=== PATIENT | female | born 1935 | race Caucasian/White ===

== ENCOUNTER 2017-06-27 13:30 | Inpatient (IN) | payer MEDICARE ==
[~2017-06-27] VITALS: Ht 162.6 cm; Wt 71.5 kg
[2017-06-27 11:34] LABS: BASOPHILS % (AUTO) 0.5 % (0-1); CLARITY,URINE SLIGHTLY CLOUDY (Clear); COLOR,URINE YELLOW (Yellow); EOSINOPHILS # (AUTO) 0.2 X10'3 (0-0.9); EOSINOPHILS % (AUTO) 3.5 % (0-6); GLUCOSE, URINE NEGATIVE (Neg); KETONES,URINE NEGATIVE (Neg); LEUKOCYTE ESTERASE ,URINE NEGATIVE (Neg); LYMPHOCYTES # (AUTO) 1.5 X10'3 (1.1-4.8); LYMPHOCYTES % (AUTO) 29.3 % (21-51); MEAN CORPUSCULAR HEMOGLOBIN 32.1 PG (27.0-31.0); MEAN CORPUSCULAR HGB CONC 35.1 % (33.0-36.5); MEAN CORPUSCULAR VOLUME 91.5 FL (78-98); MEAN PLATELET VOLUME 8.2 FL (7.4-10.4); MONOCYTES # (AUTO) 0.3 X10'3 (0-0.9); MONOCYTES % (AUTO) 6.3 % (2-12); NEUTROPHILS # (AUTO) 3.1 X10'3 (1.8-7.7); NEUTROPHILS % (AUTO) 60.4 % (42-75); NITRITES, URINE NEGATIVE (Neg); OCCULT BLOOD,URINE NEGATIVE (Neg); PRE OP HEMATOCRIT 40.3 % (35.0-45.0); PRE OP HEMOGLOBIN 14.1 g/dL (12.0-16.0); PRE OP PLATELET COUNT 195 X10'3 (140-440); PROTEIN,URINE NEGATIVE (Neg); UROBILINOGEN,URINE 0.2 E.U/dL (0.2-1.0)
[2017-06-27 11:41] LABS: UA COLLECTION TYPE CLN CATCH MIDSTREAM
[2017-06-27 11:42] LABS: PRE OP PROTIME 10.5 SECONDS (9.0-12.0)
[2017-06-27 11:45] LABS: BACTERIA,URINE FEW /HPF (Neg); RBC,URINE 0-2 /HPF (0-2); SQUAMOUS EPITHELIAL CELL,UR FEW /LPF (FEW); WBC,URINE 0-4 /HPF (0-4)
[2017-06-27 11:46] LABS: ALBUMIN/GLOBULIN RATIO 1.1 (1.1-1.5); ALKALINE PHOSPHATASE 95 IU/L (46-116); BLOOD UREA NITROGEN 16 MG/DL (7-18); BUN/CREATININE RATIO 12.6 (6.6-38.0); CALCIUM 9.1 MG/DL (8.5-10.1); CHLORIDE 105 MMOL/L (99-107); CREATININE 1.27 MG/DL (0.40-0.90); PRE OP ALT 23 U/L (30-65); PRE OP ANION GAP 11 (8-16); PRE OP AST 16 U/L (10-37); PRE OP BILIRUB, TOTAL 0.8 MG/DL (0.0-1.0); PRE OP GLUCOSE 96 MG/DL (70-104); PRE OP POTASSIUM 4.6 MMOL/L (3.4-5.1); PRE OP SODIUM 143 MMOL/L (135-145); TOTAL CARBON DIOXIDE 26.8 MMOL/L (24-32); TOTAL PROTEIN 7.6 G/DL (6.4-8.2); eGFR 41 ML/MIN
[~2017-06-27 13:30] MED LIST: ALEN35TA32 PO; BETA1TAB19 PO; LACT1CAP65 PO; MULT-955 PO; NAPR220T67 PO; OMEG-166 PO
[2017-06-28] MEDS ORDERED: CYAN100T12 PO (10:36)
[2017-07-01] VITALS (19 sets, daily range): BP systolic 103–169; BP diastolic 57–90
[2017-07-01] MEDS ORDERED: ringers solution, lacted 1,000 ML IV SCH ×2 (05:00→08:16)
[2017-07-01] MEDS ORDERED: acetaminophen 325mg tablet PO ONE (05:30)
[2017-07-01] MEDS ORDERED: famotidine 20mg tablet PO ONE (05:30)
[2017-07-01] MEDS ORDERED: tranexamic acid inj. 1,000 MG in normal saline 100ml IV soln 90 ML IV ONE (05:30)
[2017-07-01] MEDS ORDERED: oxyCODONE SR 10mg (sust. release) tab PO ONE (05:30)
[2017-07-01] MEDS ORDERED: gabapentin 300mg capsule PO ONE (05:30)
[2017-07-01] MEDS ORDERED: cefazolin/dext.iso 2gm/50ml 50 ML IV ONE (05:30)
[2017-07-01] MEDS ORDERED: LIDOcaine 1% (10mg/ml) 2ml vial ONE (05:41)
[2017-07-01] MEDS ORDERED: morphine /PF 1mg/ml 10ml inj. ONE (06:52)
[2017-07-01] MEDS ORDERED: MIDAZolam 5mg/5ml vial ONE (06:53)
[2017-07-01] MEDS ORDERED: fentaNYL/PF 50MCG/1 ML 2ML syringe ONE (06:54)
[2017-07-01] MEDS ORDERED: bacitracin inj 150,000 UNIT in sodium chloride irrig. sol 3,000 ML IR ONE (07:00)
[2017-07-01] MEDS ORDERED: vancomycin 1,000mg inj ONE (07:58)
[2017-07-01] MEDS ORDERED: ROPIVAcaine 0.5% (5mg/ml) 30ml vial ONE (08:10)
[2017-07-01] MEDS ORDERED: diphenhydrAMINE 50 mg/ml inj IV PRN (08:20)
[2017-07-01] MEDS ORDERED: ondansetron/PF 4mg/2ml inj IV PRN ×3 (08:20→10:40)
[2017-07-01] MEDS ORDERED: HYDROmorphone inj. 0.5 MG/0.5 ML DISP.SYRIN IV PRN ×2 (08:20→10:40)
[2017-07-01] MEDS ORDERED: fentaNYL/PF 50MCG/1 ML 2ML syringe IV PRN (08:20)
[2017-07-01] MEDS ORDERED: ePHEDrine 50MG/ML INJ. ONE (09:28)
[2017-07-01] MEDS ORDERED: diphenhydrAMINE 25mg capsule PO PRN ×2 (10:40)
[2017-07-01] MEDS ORDERED: acetaminophen 325mg tablet PO PRN (10:40)
[2017-07-01] MEDS ORDERED: bisacodyl 10mg suppository rectal RC PRN (10:40)
[2017-07-01] MEDS ORDERED: propofol inj 20 ML IV ONE ×2 (11:10)
[2017-07-01] MEDS: potassium cl 20mEq in 1/2 NS 1,000 ML IV SCH ×2 (12:26→20:39)
[2017-07-01] MEDS ORDERED: ceFAZolin 1000mg inj ONE (12:55)
[2017-07-01] MEDS: gabapentin 300mg capsule PO SCH ×2 (14:08→20:27)
[2017-07-01] MEDS: ceFAZolin 1GM/D5W- ADD-VANTAGE 50 ML IV SCH ×2 (17:00→23:41)
[2017-07-01] MEDS ORDERED: vancomycin/NS 1 GM ADD-VANTAGE 250 ML IV SCH (20:00)
[2017-07-01] MEDS: ascorbic acid 500mg tablet PO SCH (20:26)
[2017-07-01] MEDS: sennosides 8.6mg tablet PO SCH (20:27)
[2017-07-02 02:00] VITALS: BP 96/54
[2017-07-02] MEDS: oxyCODONE/APAP 5-325mg tablet PO PRN ×4 (05:03→22:03)
[2017-07-02 05:25] LABS: BASOPHILS % (AUTO) 0.3 % (0-1); EOSINOPHILS # (AUTO) 0.1 X10'3 (0-0.9); EOSINOPHILS % (AUTO) 0.9 % (0-6); HEMATOCRIT 33.4 % (35.0-45.0); HEMOGLOBIN 11.6 g/dl (12.0-16.0); LYMPHOCYTES % (AUTO) 13.8 % (21-51); MEAN CORPUSCULAR HEMOGLOBIN 32.1 PG (27.0-31.0); MEAN CORPUSCULAR HGB CONC 34.7 % (33.0-36.5); MEAN CORPUSCULAR VOLUME 92.6 FL (78-98); MEAN PLATELET VOLUME 7.9 FL (7.4-10.4); MONOCYTES # (AUTO) 0.7 X10'3 (0-0.9); MONOCYTES % (AUTO) 9.6 % (2-12); NEUTROPHILS # (AUTO) 5.3 X10'3 (1.8-7.7); NEUTROPHILS % (AUTO) 75.4 % (42-75); PLATELET COUNT 159 X10'3 (140-440); RED CELL DISTRIBUTION WIDTH 12.7 % (11.5-14.5)
[2017-07-02 05:38] LABS: ANION GAP 9 (8-16); CHLORIDE 102 MMOL/L (99-107); INR 1.4 INR; POTASSIUM 4.3 MMOL/L (3.5-5.1); PROTHROMBIN TIME 14.1 SECONDS (9.0-12.0); SODIUM 137 MMOL/L (135-145); TOTAL CARBON DIOXIDE 26.1 MMOL/L (24-32)
[2017-07-02] MEDS: gabapentin 300mg capsule PO SCH ×3 (07:38→22:04)
[2017-07-02] MEDS: multivitamins, therapeutics tablet PO SCH (07:38)
[2017-07-02] MEDS: ascorbic acid 500mg tablet PO SCH ×2 (07:38→22:03)
[2017-07-02] MEDS: potassium cl 20mEq in 1/2 NS 1,000 ML IV SCH ×3 (07:39→22:13)
[2017-07-02] MEDS ORDERED: warfarin 5mg tablet PO ONE (10:00)
[2017-07-02 18:30] VITALS: BP 107/47
[2017-07-02 22:00] VITALS: BP 108/84
[2017-07-02] MEDS: sennosides 8.6mg tablet PO SCH (22:03)
[2017-07-02] MEDS: celeCOXIB 100mg capsule PO SCH (22:03)
[2017-07-03] MEDS: potassium cl 20mEq in 1/2 NS 1,000 ML IV SCH (02:37)
[2017-07-03] MEDS: oxyCODONE/APAP 5-325mg tablet PO PRN ×2 (04:18→10:31)
[2017-07-03 05:23] LABS: BASOPHILS % (AUTO) 0.3 % (0-1); EOSINOPHILS # (AUTO) 0.2 X10'3 (0-0.9); EOSINOPHILS % (AUTO) 2.7 % (0-6); HEMOGLOBIN 10.3 g/dl (12.0-16.0); LYMPHOCYTES # (AUTO) 1.2 X10'3 (1.1-4.8); LYMPHOCYTES % (AUTO) 18.4 % (21-51); MEAN CORPUSCULAR HEMOGLOBIN 32.6 PG (27.0-31.0); MEAN CORPUSCULAR HGB CONC 35.4 % (33.0-36.5); MEAN CORPUSCULAR VOLUME 91.8 FL (78-98); MEAN PLATELET VOLUME 8.4 FL (7.4-10.4); MONOCYTES # (AUTO) 0.7 X10'3 (0-0.9); MONOCYTES % (AUTO) 10.8 % (2-12); NEUTROPHILS # (AUTO) 4.4 X10'3 (1.8-7.7); NEUTROPHILS % (AUTO) 67.8 % (42-75); PLATELET COUNT 131 X10'3 (140-440); RED BLOOD COUNT 3.16 X10'6 (4.20-5.60); WHITE BLOOD COUNT 6.4 X10'3 (4.5-11.0)
[2017-07-03 05:27] LABS: INR 1.5 INR; PROTHROMBIN TIME 15.4 SECONDS (9.0-12.0)
[2017-07-03 06:00] VITALS: BP 92/56
[2017-07-03] MEDS: celeCOXIB 100mg capsule PO SCH ×2 (07:29→22:11)
[2017-07-03] MEDS: gabapentin 300mg capsule PO SCH ×3 (07:29→22:11)
[2017-07-03] MEDS: ascorbic acid 500mg tablet PO SCH ×2 (07:30→22:11)
[2017-07-03] MEDS: multivitamins, therapeutics tablet PO SCH (07:30)
[2017-07-03 10:00] VITALS: BP 98/52
[2017-07-03] MEDS ORDERED: warfarin 5mg tablet PO ONE (10:00)
[2017-07-03] MEDS ORDERED: acetaminophen 325mg tablet PO PRN (10:40)
[2017-07-03 18:00] VITALS: BP 107/58
[2017-07-03 22:00] VITALS: BP 114/47
[2017-07-03] MEDS: magnesium hydroxide 30ml (MOM) UD suspension PO PRN (22:11)
[2017-07-03] MEDS: sennosides 8.6mg tablet PO SCH (22:11)
[2017-07-04 05:47] LABS: BASOPHILS % (AUTO) 0.3 % (0-1); EOSINOPHILS # (AUTO) 0.1 X10'3 (0-0.9); EOSINOPHILS % (AUTO) 2.1 % (0-6); HEMATOCRIT 30.6 % (35.0-45.0); HEMOGLOBIN 10.6 g/dl (12.0-16.0); LYMPHOCYTES # (AUTO) 1.1 X10'3 (1.1-4.8); LYMPHOCYTES % (AUTO) 19.4 % (21-51); MEAN CORPUSCULAR HEMOGLOBIN 32.2 PG (27.0-31.0); MEAN CORPUSCULAR HGB CONC 34.5 % (33.0-36.5); MEAN CORPUSCULAR VOLUME 93.2 FL (78-98); MEAN PLATELET VOLUME 8.6 FL (7.4-10.4); MONOCYTES # (AUTO) 0.6 X10'3 (0-0.9); MONOCYTES % (AUTO) 11.2 % (2-12); NEUTROPHILS # (AUTO) 3.9 X10'3 (1.8-7.7); PLATELET COUNT 144 X10'3 (140-440); RED BLOOD COUNT 3.28 X10'6 (4.20-5.60); RED CELL DISTRIBUTION WIDTH 13.1 % (11.5-14.5); WHITE BLOOD COUNT 5.8 X10'3 (4.5-11.0)
[2017-07-04 05:50] LABS: INR 1.5 INR; PROTHROMBIN TIME 15.4 SECONDS (9.0-12.0)
[2017-07-04] MEDS: oxyCODONE/APAP 5-325mg tablet PO PRN ×3 (05:54→15:57)
[2017-07-04 06:56] VITALS: BP 113/53
[2017-07-04] MEDS: ascorbic acid 500mg tablet PO SCH (07:49)
[2017-07-04] MEDS: multivitamins, therapeutics tablet PO SCH (07:49)
[2017-07-04] MEDS: gabapentin 300mg capsule PO SCH ×2 (07:49→13:55)
[2017-07-04] MEDS: celeCOXIB 100mg capsule PO SCH (07:49)
[2017-07-04 10:00] VITALS: BP 98/37
[2017-07-04] MEDS ORDERED: warfarin 3mg tablet PO ONE (10:00)
[2017-07-04] MEDS: magnesium hydroxide 30ml (MOM) UD suspension PO PRN (13:56)
== END 2017-07-04 16:30 | DRG 470 ==
LOC: EDSTATUS 13:30 → PAS IN 07-01 05:21 → EDSTATUS 07-01 07:30 → ORTHO 4S 07-01 11:15
PROVIDERS: ADMIT Specialist; ATTEND Specialist
PROC: 3E0T3BZ Introduction of Anesthetic Agent into Peripheral Nerves and Plexi, Percutaneous Approach (ICD-10-PCS; 2017-07-01)
PROC: 0SRD0J9 Replacement of Left Knee Joint with Synthetic Substitute, Cemented, Open Approach (ICD-10-PCS; principal; 2017-07-01 07:20)
DX: M17.0 Bilateral primary osteoarthritis of knee (principal); D62 Acute posthemorrhagic anemia; M81.0 Age-related osteoporosis without current pathological fracture; M21.062 Valgus deformity, not elsewhere classified, left knee; M94.262 Chondromalacia, left knee; F17.210 Nicotine dependence, cigarettes, uncomplicated; Z90.710 Acquired absence of both cervix and uterus; Z90.49 Acquired absence of other specified parts of digestive tract; Z88.5 Allergy status to narcotic agent; Z79.899 Other long term (current) drug therapy
CPT/HCPCS: 36415; 73560; 80051; 80053; 81001; 85025; 85610; 85730; 87070; 97110; 97116; 97162; 97530; A6449; A6455; A7000; C1713; C1758; C1776; J0690; J2250; J2274; J2405; J2704; J2795; J3010; J3370; J3490; J7030; J7120